=== PATIENT | male | born 1955 | race Caucasian/White ===

== ENCOUNTER → 2020-06-15 | Outpatient (CLI) | payer MEDICARE, OTHER ==
[~2020-06-15] MED LIST: ALLOPURINOL100 MG PO; DEXILANT30 MG PO; MASON NATURAL1200 MG PO; MASON NATURAL600 MG PO; PROAIR HFA0.09 MG/AC INH; SINGULAIR10 MG PO; SUPER BETA PROSTATE PO
== END | disposition home or self-care (01) ==
LOC: RAD 16:57
PROVIDERS: ATTEND Internal Medicine
DX: M54.32 Sciatica, left side (principal); M25.552 Pain in left hip